=== PATIENT | male | born 1955 | race Caucasian/White ===

== ENCOUNTER 2017-10-16 08:37 | Outpatient (CLI) | payer BC ==
[2017-10-16 10:10] LABS: BASOPHILS % (AUTO) 0.7 %; EOSINOPHILS # (AUTO) 0.1 10^3/uL (0.0-0.7); EOSINOPHILS % (AUTO) 2.6 %; HGB - HEMOGLOBIN 15.1 g/dL (14.0-18.0); LYMPHOCYTES # (AUTO) 1.8 10^3/uL (1.5-3.5); LYMPHOCYTES % (AUTO) 35.8 %; MEAN CORPUSCULAR HEMOGLOBIN 33.2 pg (27.0-31.0); MEAN PLATELET VOLUME 6.8 fL (7.4-11.4); MONOCYTES # (AUTO) 0.5 10^3/uL (0.0-1.0); MONOCYTES % (AUTO) 10.6 %; NEUTROPHILS # (AUTO) 2.6 10^3/uL (1.5-6.6); NEUTROPHILS % (AUTO) 50.3 %; PLT - PLATELET COUNT 223 10^3/uL (130-450); RED BLOOD COUNT 4.55 10^6/uL (4.70-6.10); RED CELL DISTRIBUTION WIDTH 12.6 % (12.0-15.0); WHITE BLOOD COUNT 5.1 x10^3/uL (4.8-10.8)
[2017-10-16 10:25] LABS: ALBUMIN 4.5 g/dL (3.2-5.5); ALBUMIN/GLOBULIN RATIO 1.6 (1.0-2.2); ALKALINE PHOSPHATASE 61 IU/L (42-121); ALT ALANINE AMINOTRANSFERASE 43 IU/L (10-60); AST ASPARTATE AMINOTRANSFERASE 25 IU/L (10-42); BILIRUBIN,TOTAL 0.8 mg/dL (0.2-1.0); BUN - BLOOD UREA NITROGEN 19 mg/dL (6-20); CALCIUM 9.2 mg/dL (8.5-10.3); CARBON DIOXIDE - CO2 27 mmol/L (21-32); CHLORIDE 99 mmol/L (101-111); CHOL/HDL RATIO 6.4 (<5.0); CHOLESTEROL 185 mg/dL; CREATININE 1.1 mg/dL (0.6-1.2); GFR - MDRD 68 (>89); GLUCOSE 100 mg/dL (70-100); HDL CHOLESTEROL 29 mg/dL; SODIUM 136 mmol/L (135-145); TOTAL PROTEIN 7.4 g/dL (6.7-8.2)
[2017-10-16 10:34] LABS: HB2 TOTAL 16.1 g/dL; HEMOGLOBIN A1C 0.53 g/dL; HEMOGLOBIN A1C % 5.2 % (4.6-6.2)
[2017-10-16 10:50] LABS: LDL CHOLESTEROL,DIRECT 62 mg/dL; LDLD/HDL RATIO 2.1 (<3.6)
== END 2017-10-16 08:38 | disposition home or self-care (01) ==
LOC: LAB.F 08:37
PROVIDERS: ATTEND Internal Medicine
DX: C43.9 Malignant melanoma of skin, unspecified (principal); R73.01 Impaired fasting glucose; I10 Essential (primary) hypertension; E78.5 Hyperlipidemia, unspecified; Z12.5 Encounter for screening for malignant neoplasm of prostate; Z79.899 Other long term (current) drug therapy
CPT/HCPCS: 36415; 80053; 80061; 83036; 84153; 85025

== ENCOUNTER 2018-04-10 13:24 | Outpatient (CLI) | payer BC | END 2018-04-10 13:25 | disposition home or self-care (01) | LOC: DI 13:24 | PROVIDERS: ATTEND Podiatrist | DX: Z53.9 Procedure and treatment not carried out, unspecified reason (principal) ==

== ENCOUNTER 2018-04-10 13:41 | Outpatient (CLI) | payer BC ==
--- NOTE | 2018-04-10 14:19 | XRAY Report ---
Procedure Date: 04/10/2018 Accession Number: [id number] / [id number] Procedure: XR - Foot 3 View RT CPT Code: FULL RESULT: EXAM: Foot 3 View RT DATE: 04/10/2018 1:58 PM CLINICAL HISTORY: PAIN AND SWELLING 2ND MT-2ND TOE COMPARISON: None. TECHNIQUE: 3 views. FINDINGS: Bones: Normal. No fractures or bone lesions. Joints: Mild osteoarthritis of the first metatarsophalangeal joint. Soft Tissues: Normal. No soft tissue swelling. IMPRESSION: Mild osteoarthritis. No evidence of fracture. RADIA
== END 2018-04-10 13:42 | disposition home or self-care (01) ==
LOC: DI 13:41
PROVIDERS: ATTEND Podiatrist
DX: M19.071 Primary osteoarthritis, right ankle and foot (principal)

== ENCOUNTER 2018-11-18 08:39 | Outpatient (CLI) | payer BC ==
[2018-11-18 12:51] LABS: BASOPHILS % (AUTO) 0.8 %; EOSINOPHILS # (AUTO) 0.1 10^3/uL (0.0-0.7); EOSINOPHILS % (AUTO) 2.6 %; HGB - HEMOGLOBIN 15.2 g/dL (14.0-18.0); LYMPHOCYTES # (AUTO) 1.8 10^3/uL (1.5-3.5); LYMPHOCYTES % (AUTO) 38.8 %; MEAN CORPUSCULAR HEMOGLOBIN 33.3 pg (27.0-31.0); MEAN CORPUSCULAR HGB CONC 34.4 g/dL (32.0-36.0); MEAN CORPUSCULAR VOLUME 96.8 fL (80.0-94.0); MEAN PLATELET VOLUME 7.4 fL (7.4-11.4); MONOCYTES # (AUTO) 0.4 10^3/uL (0.0-1.0); MONOCYTES % (AUTO) 8.3 %; NEUTROPHILS # (AUTO) 2.3 10^3/uL (1.5-6.6); NEUTROPHILS % (AUTO) 49.5 %; PLT - PLATELET COUNT 212 10^3/uL (130-450); RED BLOOD COUNT 4.57 10^6/uL (4.70-6.10); RED CELL DISTRIBUTION WIDTH 12.7 % (12.0-15.0); WHITE BLOOD COUNT 4.7 x10^3/uL (4.8-10.8)
[2018-11-18 14:10] LABS: ALBUMIN 4.3 g/dL (3.2-5.5); ALBUMIN/GLOBULIN RATIO 1.7 (1.0-2.2); ALKALINE PHOSPHATASE 51 IU/L (42-121); ALT ALANINE AMINOTRANSFERASE 32 IU/L (10-60); AST ASPARTATE AMINOTRANSFERASE 22 IU/L (10-42); BILIRUBIN,TOTAL 0.5 mg/dL (0.2-1.0); BUN - BLOOD UREA NITROGEN 18 mg/dL (6-20); CARBON DIOXIDE - CO2 28 mmol/L (21-32); CHLORIDE 105 mmol/L (101-111); CHOLESTEROL 175 mg/dL; CREATININE 1.1 mg/dL (0.6-1.2); GFR - MDRD 68 (>89); GLUCOSE 117 mg/dL (70-100); HDL CHOLESTEROL 29 mg/dL; SODIUM 139 mmol/L (135-145); TOTAL PROTEIN 6.8 g/dL (6.7-8.2)
[2018-11-18 14:35] LABS: LDL CHOLESTEROL,DIRECT 66 mg/dL; LDLD/HDL RATIO 2.3 (<3.6)
[2018-11-18 15:44] LABS: HB2 TOTAL 16.1 g/dL; HEMOGLOBIN A1C 0.54 g/dL; HEMOGLOBIN A1C % 5.2 % (4.6-6.2)
== END 2018-11-18 08:40 | disposition home or self-care (01) ==
LOC: LAB.F 08:39
PROVIDERS: ATTEND Internal Medicine
DX: R73.01 Impaired fasting glucose (principal); I10 Essential (primary) hypertension; E78.5 Hyperlipidemia, unspecified; Z79.899 Other long term (current) drug therapy
CPT/HCPCS: 36415; 80053; 80061; 83036; 83721; 84443; 85025

== ENCOUNTER 2020-01-21 13:45 | Outpatient (CLI) | payer BC | END 2020-01-21 13:46 | disposition EMS.NT | LOC: EMS 13:45 | PROVIDERS: ATTEND Surgery | DX: M54.2 Cervicalgia (principal); V43.52XA Car driver injured in collision with other type car in traffic accident, initial encounter; Y92.414 Local residential or business street as the place of occurrence of the external cause ==

== ENCOUNTER 2021-03-09 08:46 | Outpatient (CLI) | payer BC ==
[2021-03-09 15:27] LABS: THYROID STIMULATING HORMONE 1.23 uIU/mL (0.34-5.60)
[2021-03-09 15:34] LABS: ALBUMIN 4.5 g/dL (3.2-5.5); ALBUMIN/GLOBULIN RATIO 1.7 (1.0-2.2); ALKALINE PHOSPHATASE 62 IU/L (42-121); ALT ALANINE AMINOTRANSFERASE 31 IU/L (10-60); AST ASPARTATE AMINOTRANSFERASE 23 IU/L (10-42); BILIRUBIN,TOTAL 0.8 mg/dL (0.2-1.0); BUN - BLOOD UREA NITROGEN 13 mg/dL (6-20); CALCIUM 8.9 mg/dL (8.5-10.3); CARBON DIOXIDE - CO2 26 mmol/L (21-32); CHLORIDE 101 mmol/L (101-111); CHOL/HDL RATIO 5.5 (<5.0); CHOLESTEROL 197 mg/dL; CREATININE 1.1 mg/dL (0.6-1.2); GFR - MDRD 67 (>89); GLUCOSE 116 mg/dL (70-100); HDL CHOLESTEROL 36 mg/dL; LDL CHOLESTEROL,CALCULATED 106 mg/dL; LDL/HDL RATIO 2.9 (<3.6); POTASSIUM 4.3 mmol/L (3.5-5.0); SODIUM 137 mmol/L (135-145); TOTAL PROTEIN 7.2 g/dL (6.7-8.2); TRIGLYCERIDES 275 mg/dL; VLDL CHOLESTEROL 55 mg/dL
[2021-03-09 15:38] LABS: BASOPHILS % (AUTO) 0.9 %; EOSINOPHILS # (AUTO) 0.1 10^3/uL (0.0-0.7); EOSINOPHILS % (AUTO) 2.7 %; HCT - HEMATOCRIT 45.6 % (42.0-52.0); HGB - HEMOGLOBIN 15.2 g/dL (14.0-18.0); LYMPHOCYTES # (AUTO) 1.5 10^3/uL (1.5-3.5); LYMPHOCYTES % (AUTO) 32.7 %; MEAN CORPUSCULAR HEMOGLOBIN 33.4 pg (27.0-31.0); MEAN CORPUSCULAR HGB CONC 33.3 g/dL (32.0-36.0); MEAN CORPUSCULAR VOLUME 100.2 fL (80.0-94.0); MEAN PLATELET VOLUME 8.9 fL (7.4-11.4); MONOCYTES # (AUTO) 0.5 10^3/uL (0.0-1.0); MONOCYTES % (AUTO) 10.4 %; NEUTROPHILS # (AUTO) 2.4 10^3/uL (1.5-6.6); NEUTROPHILS % (AUTO) 53.1 %; PLT - PLATELET COUNT 201 10^3/uL (130-450); RED BLOOD COUNT 4.55 10^6/uL (4.70-6.10); RED CELL DISTRIBUTION WIDTH 13.1 % (12.0-15.0); WHITE BLOOD COUNT 4.4 x10^3/uL (4.8-10.8)
== END 2021-03-09 08:47 | disposition home or self-care (01) ==
LOC: LAB.S 08:46
PROVIDERS: ATTEND Physician Assistant
DX: K64.9 Unspecified hemorrhoids (principal); Z68.26 Body mass index [BMI] 26.0-26.9, adult; N52.9 Male erectile dysfunction, unspecified; R73.01 Impaired fasting glucose; K21.9 Gastro-esophageal reflux disease without esophagitis; I10 Essential (primary) hypertension; K27.9 Peptic ulcer, site unspecified, unspecified as acute or chronic, without hemorrhage or perforation; E78.5 Hyperlipidemia, unspecified
CPT/HCPCS: 36415; 80053; 80061; 83721; 84153; 84443; 85025

== ENCOUNTER 2021-07-12 11:36 | Emergency (ER) | payer MEDICARE, BC ==
[2021-07-12 12:35] LABS: BASOPHILS % (AUTO) 0.5 %; EOSINOPHILS # (AUTO) 0.1 10^3/uL (0.0-0.7); EOSINOPHILS % (AUTO) 1.2 %; HGB - HEMOGLOBIN 15.9 g/dL (14.0-18.0); LYMPHOCYTES # (AUTO) 1.3 10^3/uL (1.5-3.5); LYMPHOCYTES % (AUTO) 14.9 %; MEAN CORPUSCULAR HEMOGLOBIN 33.3 pg (27.0-31.0); MEAN CORPUSCULAR HGB CONC 33.8 g/dL (32.0-36.0); MEAN CORPUSCULAR VOLUME 98.5 fL (80.0-94.0); MEAN PLATELET VOLUME 8.5 fL (7.4-11.4); MONOCYTES # (AUTO) 0.7 10^3/uL (0.0-1.0); MONOCYTES % (AUTO) 8.3 %; NEUTROPHILS # (AUTO) 6.4 10^3/uL (1.5-6.6); NEUTROPHILS % (AUTO) 74.5 %; PLT - PLATELET COUNT 219 10^3/uL (130-450); RED BLOOD COUNT 4.77 10^6/uL (4.70-6.10); RED CELL DISTRIBUTION WIDTH 12.7 % (12.0-15.0); WHITE BLOOD COUNT 8.6 x10^3/uL (4.8-10.8)
[2021-07-12 12:54] LABS: ALBUMIN 5.2 g/dL (3.2-5.5); ALBUMIN/GLOBULIN RATIO 1.6 (1.0-2.2); CALCIUM 9.4 mg/dL (8.5-10.3); CREATININE 1.1 mg/dL (0.6-1.2); POTASSIUM 4.3 mmol/L (3.5-5.0); TOTAL PROTEIN 8.5 g/dL (6.7-8.2)
[2021-07-12] MEDS ORDERED: IOVERSOL 320 100 ML VIAL IVP ONE ×2 (13:13→14:15)
--- NOTE | 2021-07-12 14:31 | CT Report ---
PROCEDURE: Abdomen/Pelvis W INDICATIONS: rectal pain tenderness CONTRAST: IV CONTRAST: Optiray 320 ml: 100 PO CONTRAST: *NO PO CONTRAST TECHNIQUE: After the administration of intravenous contrast, 5 mm thick sections acquired from the diaphragms to the symphysis. 5 mm thick coronal and sagittal reformats were acquired. For radiation dose reducti on, the following was used: automated exposure control, adjustment of mA and/or kV according to farheen ent size. COMPARISON: None. FINDINGS: Image quality: Excellent. ABDOMEN: Lung bases: Lung bases are clear. Heart size is normal. Prostatic calcifications noted in the visua lized right coronary vasculature. Solid organs: Liver and spleen are normal in size and enhancement. Diffuse fatty infiltration of maris er. Gallbladder is within normal limits. Biliary system is non dilated. Pancreas enhances normally. No adrenal nodules. Kidneys demonstrate normal size and enhancement, without hydronephrosis. Peritoneum and bowel: Bowel loops demonstrate caliber. Circumferential wall thickening involving the rectum is distended. Mild perianal inflammatory stranding noted. Small fluid collection with discont inuous peripheral enhancement noted adjacent to the anterior left margin of the anus measures approxi mately 1.3 cm in maximum diameter. No free fluid or air. Nodes and vessels: No retroperitoneal or mesenteric adenopathy by size criteria. Aorta and inferior vena cava are normal in size. Scattered atherosclerotic calcifications are noted in the abdominal an d pelvic vasculature. Miscellaneous: No ventral hernias. PELVIS: Genitourinary: Bladder wall thickness is normal. Miscellaneous: No inguinal hernias or adenopathy. Bones: No suspicious bony lesions. Spine degenerative disc disease and facet arthropathy are noted. No vertebral body compression fractures. IMPRESSION: 1. Anorectal inflammation. 2. Small 0.3 cm fluid collection adjacent to the anterior-left margin of the anus which demonstrates partial peripheral postcontrast enhancement. Finding may represent inflammatory phlegmon versus early abscess. 3. No free peritoneal fluid or air. 4. No dilated loops of bowel. 5. Hepatic steatosis. 6. Atherosclerosis including the visualized right coronary vasculature. Reviewed by: Leslee Justin MD, PhD on 07/12/2021 2:29 PM PDT Approved by: Leslee Justin MD, PhD on 07/12/2021 2:29 PM PDT Station ID: [id number]
[2021-07-12] MEDS ORDERED: AMOX/CLAV 875 MG/125 MG TABLET PO STA (15:26)
--- NOTE | 2021-07-12 15:27 | ED Physician Documentation ---
History of Present Illness - Stated complaint Stated Complaint: MALE - Chief complaint Chief Complaint: General - Additonal information Additional information: 66-year-old male presents the emergency department for evaluation of possible a bscess. He reports that he has had pain in his rectal region for about 3 days. However he denies discomfort with bowel movements. He does have a history of hemorrhoids but this feels distinctly different. He denies any recent constipation or diarrhea. Reports a colonoscopy about 4 years ago that was negative and advised 10-year follow-up. Review of Systems Constitutional: reports: Reviewed and negative Ears: reports: Reviewed and negative Throat: reports: Reviewed and negative Cardiac: reports: Reviewed and negative Respiratory: reports: Reviewed and negative GI: reports: Other (Pain in the region of the right gluteus proximal to the rectum). denies: Constipation, Diarrhea : reports: Dysuria Skin: reports: Reviewed and negative PD PAST MEDICAL HISTORY - Present Medications Home Medications: Ambulatory Orders Medication Instructions Recorded Confirmed Amox/Clav 875/125 [Augmentin] 1 each PO Q12H #20 tablet 07/12/21 - Allergies Allergies/Adverse Reactions: Allergies Allergy/AdvReac Type Severity Reaction Status Date / Time No Known Drug Allergies Allergy Verified 07/12/21 11:59 - Social History Does the pt smoke?: No Smoking Status: Never smoker Does the pt drink ETOH?: Yes - Immunizations Immunizations are current?: Yes PD ED PE EXPANDED - Rectal Rectal: Normal Tone, [employer] Work[employer] present, Other (No tenderness of the rectum itself. There is mild tenderness on the right side just lateral to the rectum without fluctuance abscess or erythema at about 9:00). No: Hemorrhoid Results - Vitals Vitals: Vital Signs - 24 hr 07/12/21 11:55 Temperature 36.5 C Heart Rate 63 Respiratory 17 Rate Blood Pressure 169/85 H O2 Saturation 99 Oxygen O2 Source Room air - Labs Labs: Laboratory Tests 07/12/21 07/12/21 12:16 12:16 WBC 8.6 RBC 4.77 Hgb 15.9 Hct 47.0 MCV 98.5 H MCH 33.3 H MCHC 33.8 RDW 12.7 Plt Count 219 MPV 8.5 Neut # (Auto) 6.4 Lymph # (Auto) 1.3 L [place] # (Auto) 0.7 Eos # (Auto) 0.1 Baso # (Auto) 0.0 Absolute Nucleated RBC 0.00 Nucleated RBC % 0.0 Sodium 137 Potassium 4.3 Chloride 98 L Carbon Dioxide 29 Anion Gap 10.0 BUN 15 Creatinine 1.1 Estimated GFR (MDRD) 67 L Glucose 112 H Calcium 9.4 Total Bilirubin 1.0 AST 25 ALT 44 Alkaline Phosphatase 78 Total Protein 8.5 H Albumin 5.2 Globulin 3.3 Albumin/Globulin Ratio 1.6 Lipase 27 - Rads (name of study) abd/pelvis Radiology: Final report received (Small 0.3 cm fluid collection adjacent to the anterior left margin of the anus which demonstrates partial peripheral postcontrast enhancement. Findings may represent inflammatory phlegmon versus early abscess.) PD MEDICAL DECISION MAKING - ED course Complexity details: reviewed results, considered differential, d/w patient ED course: 66-year-old male presents emergency department for evaluation of pain in the region of his right rectal area that began 3 days ago. On exam there is no rectal tenderness elicited. The pain is lateral to the rectum within the soft tissue of the gluteus but there are no obvious erythema or fluctuance noted. Screening labs are unremarkable. No leukocytosis. No fevers. A CT of the abdomen pelvis shows a possible early small inflammatory change or abscess within the region adjacent to the left margin in the anus. Patient is not tender in this area. At this time he may have early inflammatory changes or an abscess. However there is certainly nothing amenable to drainage. Patient will be started on Augmentin and advised warm sits baths. Return to the ED if not improving. Departure - Departure Disposition: 01 Home, Self Care Clinical Impression: Perirectal discomfort Condition: Stable Record reviewed to determine appropriate education?: Yes Prescriptions: Amox/Clav 875/125 [Augmentin] 1 each PO Q12H #20 tablet Comments: Cornell you were seen in the emergency department today for pain in your right rectal region. Your screening labs today are essentially normal. We did do a CAT scan to evaluate to see if an abscess had formed. There is no obvious abscess seen at this time. It may simply be too early. At this time I would like you to fill the prescription for the Augmentin and begin taking twice daily for the next 10 days. I would also like you to sit in a warm sitz bath for 10 minutes twice a day. Your prescription has been electronically sent to the [facility] in [place]. If at any point you feel that your symptoms are worsening despite the antibiotics, you have increased pain, any fevers or increased swelling in your rectal region then please return immediately to the ER for a second evaluation.
[2021-07-12 15:51] VITALS: BP 164/80
== END 2021-07-12 15:53 | disposition home or self-care (01) ==
LOC: ED 11:36
DX: K62.89 Other specified diseases of anus and rectum (principal)
CPT/HCPCS: 36415; 74177; 80053; 83690; 85025; 87040; 99281; 99284; A9270; Q9967

== ENCOUNTER 2021-09-11 11:15 | Outpatient (CLI) | payer MEDICARE, BC ==
--- NOTE | 2021-09-11 14:33 | XRAY Report ---
PROCEDURE: Elbow 3 View RT INDICATIONS: R LATERAL EPICONDYLITIS TECHNIQUE: 3 views of the elbow were acquired. COMPARISON: None FINDINGS: Bones: No fractures or dislocations. No suspicious bony lesions. Soft tissues: No elbow joint effusion. No suspicious soft tissue calcifications. IMPRESSION: No elbow fracture or dislocation. No joint effusion. No suspicious bony lesion. Reviewed by: Jose Antonio Severino MD on 09/11/2021 2:32 PM PST Approved by: Jose Antonio Severino MD on 09/11/2021 2:32 PM PST Station ID: [id number]
== END 2021-09-11 23:59 | disposition home or self-care (01) ==
LOC: DI.N 11:15
PROVIDERS: ATTEND Physician Assistant
DX: M77.11 Lateral epicondylitis, right elbow (principal)

== ENCOUNTER 2022-11-14 08:17 | Outpatient (CLI) | payer MEDICARE, BC ==
[2022-11-14 14:23] LABS: BASOPHILS % (AUTO) 0.6 %; EOSINOPHILS # (AUTO) 0.2 10^3/uL (0.0-0.7); EOSINOPHILS % (AUTO) 3.2 %; HCT - HEMATOCRIT 46.1 % (42.0-52.0); LYMPHOCYTES # (AUTO) 1.8 10^3/uL (1.5-3.5); MEAN CORPUSCULAR HEMOGLOBIN 32.1 pg (27.0-31.0); MEAN CORPUSCULAR HGB CONC 32.5 g/dL (32.0-36.0); MEAN CORPUSCULAR VOLUME 98.7 fL (80.0-94.0); MEAN PLATELET VOLUME 8.7 fL (7.4-11.4); MONOCYTES # (AUTO) 0.6 10^3/uL (0.0-1.0); MONOCYTES % (AUTO) 12.3 %; NEUTROPHILS # (AUTO) 2.1 10^3/uL (1.5-6.6); NEUTROPHILS % (AUTO) 45.7 %; PLT - PLATELET COUNT 249 10^3/uL (130-450); RED BLOOD COUNT 4.67 10^6/uL (4.70-6.10); RED CELL DISTRIBUTION WIDTH 12.5 % (12.0-15.0); WHITE BLOOD COUNT 4.6 x10^3/uL (4.8-10.8)
[2022-11-14 15:14] LABS: ALBUMIN 4.3 g/dL (3.2-5.5); ALBUMIN/GLOBULIN RATIO 1.4 (1.0-2.2); ALKALINE PHOSPHATASE 45 IU/L (42-121); ALT ALANINE AMINOTRANSFERASE 38 IU/L (10-60); AST ASPARTATE AMINOTRANSFERASE 24 IU/L (10-42); BILIRUBIN,TOTAL 0.9 mg/dL (0.2-1.0); BUN - BLOOD UREA NITROGEN 23 mg/dL (6-20); CALCIUM 9.8 mg/dL (8.5-10.3); CARBON DIOXIDE - CO2 26 mmol/L (21-32); CHLORIDE 99 mmol/L (101-111); CHOL/HDL RATIO 4.9 (<5.0); CHOLESTEROL 183 mg/dL; CREATININE 1.3 mg/dL (0.6-1.2); GFR - MDRD 55 (>89); GLUCOSE 108 mg/dL (70-100); HDL CHOLESTEROL 37 mg/dL; LDL CHOLESTEROL,CALCULATED 89 mg/dL; LDL/HDL RATIO 2.4 (<3.6); POTASSIUM 4.7 mmol/L (3.5-5.0); SODIUM 136 mmol/L (135-145); TOTAL PROTEIN 7.3 g/dL (6.7-8.2); TRIGLYCERIDES 286 mg/dL; VLDL CHOLESTEROL 57 mg/dL
[2022-11-14 15:20] LABS: THYROID STIMULATING HORMONE 1.1 uIU/mL (0.34-5.60)
[2022-11-14 20:42] LABS: ESTIMATED AVERAGE GLUCOSE 111 mg/dL (70-100); HEMOGLOBIN A1c% 5.5 % (4.27-6.07)
== END 2022-11-14 08:18 | disposition home or self-care (01) ==
LOC: LAB.S 08:17
PROVIDERS: ATTEND Registered Nurse
DX: I10 Essential (primary) hypertension (principal); E78.1 Pure hyperglyceridemia; R73.01 Impaired fasting glucose; E78.5 Hyperlipidemia, unspecified
CPT/HCPCS: 36415; 80053; 80061; 83036; 83721; 84153; 84443; 85025

== ENCOUNTER 2023-04-28 08:51 | Outpatient (CLI) | payer MEDICARE, BC ==
[2023-04-28 15:40] LABS: CHOL/HDL RATIO 4.6 (<5.0); CHOLESTEROL 185 mg/dL; HDL CHOLESTEROL 40 mg/dL; LDL CHOLESTEROL,CALCULATED 76 mg/dL; LDL/HDL RATIO 1.9 (<3.6); TRIGLYCERIDES 347 mg/dL (48-352); VLDL CHOLESTEROL 69 mg/dL
[2023-04-28 20:43] LABS: CREATININE,URINE 99.5 mg/dL; MICROALBUMIN,URINE 0.7 mg/dL
== END 2023-04-28 08:52 | disposition home or self-care (01) ==
LOC: LAB.S 08:51
PROVIDERS: ATTEND Registered Nurse
DX: I10 Essential (primary) hypertension (principal); E78.1 Pure hyperglyceridemia
CPT/HCPCS: 36415; 80061; 82043; 82570; 83721

== ENCOUNTER 2023-08-08 10:36 | Outpatient (CLI) | payer MEDICARE, BC ==
[2023-08-13 11:10] LABS: DEAMIDATED GLIADIN IGA 7 units (0-19); DEAMIDATED GLIADIN IGG 2 units (0-19); ENDOMYSIAL IGA Negative (Negative); IMMUNOGLOBULIN A 296 mg/dL (61-437); T-TRANSGLUTAMINASE (TTG) IGA <2 U/mL (0-3); T-TRANSGLUTAMINASE (TTG) IGG 3 U/mL (0-5)
== END 2023-08-08 10:37 | disposition home or self-care (01) ==
LOC: LAB.S 10:36
PROVIDERS: ATTEND Registered Nurse
DX: R19.7 Diarrhea, unspecified (principal)
CPT/HCPCS: 36415; 82784; 86231; 86364

== ENCOUNTER 2023-08-09 08:00 | Outpatient (CLI) | payer MEDICARE, BC | END 2023-08-09 23:59 | disposition home or self-care (01) | LOC: LAB.R 08:00 | PROVIDERS: ATTEND Registered Nurse | DX: R19.7 Diarrhea, unspecified (principal) | CPT/HCPCS: 82705; 83993 ==

== ENCOUNTER 2023-09-18 09:06 | Outpatient (CLI) | payer MEDICARE, BC ==
[2023-09-19 11:10] LABS: H. PYLORI BREATH TEST Negative (Negative)
== END 2023-09-18 09:07 | disposition home or self-care (01) ==
LOC: LAB 09:06
PROVIDERS: ATTEND Internal Medicine Gastroenterology
DX: R10.9 Unspecified abdominal pain (principal); R19.7 Diarrhea, unspecified
CPT/HCPCS: 83013

== ENCOUNTER 2023-11-27 11:56 | Outpatient (CLI) | payer BC, MEDICARE ==
[2023-11-27 15:10] LABS: BASOPHILS % (AUTO) 0.6 %; EOSINOPHILS # (AUTO) 0.1 10^3/uL (0.0-0.7); EOSINOPHILS % (AUTO) 2.3 %; HCT - HEMATOCRIT 41.9 % (42.0-52.0); HGB - HEMOGLOBIN 13.9 g/dL (14.0-18.0); LYMPHOCYTES # (AUTO) 1.6 10^3/uL (1.5-3.5); LYMPHOCYTES % (AUTO) 31.1 %; MEAN CORPUSCULAR HEMOGLOBIN 32.8 pg (27.0-31.0); MEAN CORPUSCULAR HGB CONC 33.2 g/dL (32.0-36.0); MEAN CORPUSCULAR VOLUME 98.8 fL (80.0-94.0); MEAN PLATELET VOLUME 8.9 fL (7.4-11.4); MONOCYTES # (AUTO) 0.7 10^3/uL (0.0-1.0); MONOCYTES % (AUTO) 12.7 %; NEUTROPHILS # (AUTO) 2.8 10^3/uL (1.5-6.6); NEUTROPHILS % (AUTO) 52.9 %; PLT - PLATELET COUNT 246 10^3/uL (130-450); RED BLOOD COUNT 4.24 10^6/uL (4.70-6.10); RED CELL DISTRIBUTION WIDTH 12.6 % (12.0-15.0); WHITE BLOOD COUNT 5.2 x10^3/uL (4.8-10.8)
[2023-11-27 15:50] LABS: ALBUMIN 4.5 g/dL (3.2-5.5); ALBUMIN/GLOBULIN RATIO 1.8 (1.0-2.2); BILIRUBIN,TOTAL 0.8 mg/dL (0.2-1.0); CALCIUM 9.5 mg/dL (8.5-10.3); CREATININE 1.1 mg/dL (0.6-1.3); POTASSIUM 4.2 mmol/L (3.5-4.5)
== END 2023-11-27 11:57 | disposition home or self-care (01) ==
LOC: LAB.S 11:56
PROVIDERS: ATTEND Nurse Practitioner
DX: M79.652 Pain in left thigh (principal)
CPT/HCPCS: 36415; 80053; 85025; 85379

== ENCOUNTER 2024-02-24 09:07 | Outpatient (CLI) | payer MEDICARE ==
--- NOTE | 2024-02-24 14:25 | Ultrasound Report ---
PROCEDURE: Duplex Ext Veins Left INDICATIONS: L CALF PAIN TECHNIQUE: Real-time imaging, as well as color and pulse Doppler interrogation, were performed of the lower extr emity deep veins from the inguinal ligament to the popliteal fossa. Attempted visualization of the ca lf veins was performed. COMPARISON: None. FINDINGS: The deep veins are normally compressible, and free of intraluminal thrombus. Color and pu lse Doppler demonstrate normal phasic intraluminal flow. There is normal augmentation response to di stal compression maneuver. IMPRESSION: No deep venous thrombosis of the visualized lower extremity. Reviewed by: Vineet Amos MD on 02/24/2024 2:24 PM PDT Approved by: Vineet Amos MD on 02/24/2024 2:24 PM PDT Station ID: [id number]
== END 2024-02-24 09:08 | disposition home or self-care (01) ==
LOC: DI 09:07
PROVIDERS: ATTEND Registered Nurse
DX: M79.662 Pain in left lower leg (principal); M79.652 Pain in left thigh